=== PATIENT | male | born 1980 | race Asian ===

== ENCOUNTER 2018-07-22 08:49 | Outpatient (CLI) | payer OTHER | END 2018-07-22 23:59 | disposition home or self-care (01) | LOC: CFH 08:49 | PROVIDERS: ATTEND Internal Medicine | DX: E78.5 Hyperlipidemia, unspecified (principal); Z82.49 Family history of ischemic heart disease and other diseases of the circulatory system | CPT/HCPCS: 75571 ==

== ENCOUNTER 2020-10-23 16:45 | Outpatient (CLI) | payer BC | END 2020-10-23 23:59 | disposition home or self-care (01) | LOC: LAB 16:45 | PROVIDERS: ATTEND Internal Medicine | DX: Z02.9 Encounter for administrative examinations, unspecified (principal) ==